=== PATIENT | male | born 1975 | race Hispanic/Latino ===

== ENCOUNTER 2017-04-30 10:26 | Emergency (ER) | payer OTHER ==
[2017-04-30 10:53] VITALS: BP 148/91; PULSE 85; RESP 18; TEMP 98; O2SAT 98
--- NOTE | 2017-04-30 11:03 | ED PDOC ---
Lower Extremity Pain/Injury Time Seen by Provider: 04/30/17 10:48 Chief Complaint (Nursing): Lower Extremity Problem/Injury Chief Complaint (Provider): knee pain History Per: Patient Additional Complaint(s): 41-year-old male presents with pain to left knee status post injury while playing soccer last night. Patient twisted his knee and felt a pop. He has been having pain with ambulation since then. No medication taken for pain relief. Patient rates current pain as 7 out of 10, better with rest, worse with movement. Past Medical History Reviewed: Historical Data, Nursing Documentation, Vital Signs Vital Signs: Last Vital Signs Temp 98.0 F 04/30/17 10:47 Pulse 85 04/30/17 10:47 Resp 18 04/30/17 10:47 BP 148/91 H 04/30/17 10:47 Pulse Ox 98 04/30/17 10:47 - Medical History PMH: No Chronic Diseases - Surgical History Other surgeries: cyst removal from upper back - Family History Family History: States: No Known Family Hx - Living Arrangements Living Arrangements: With Family - Social History Current smoker - smoking cessation education provided: No Alcohol: Social Drugs: Denies - Home Medications Home Medications: Ambulatory Orders Medication Instructions Recorded Ibuprofen [Motrin Tab] 800 mg PO Q8 PRN #20 tab 04/30/17 - Allergies Allergies/Adverse Reactions: Allergies Allergy/AdvReac Type Severity Reaction Status Date / Time No Known Allergies Allergy Verified 04/30/17 10:52 Wells Criteria for PE - Wells Criteria for Pulmonary Embolism Clinical Signs and Symptoms of DVT: No P.E is #1 Diagnosis, or Equally Likely: No Heart Rate >100: No Immobilization at least 3 days;Surgery previous 4 weeks: No Previous, objectively diagnosed PE or DVT: No Hemoptysis: No Malignancy w/treatment within 6 months, or palliative: No Total Score: 0 Review of Systems ROS Statement: Except As Marked, All Systems Reviewed And Found Negative Musculoskeletal: Positive for: Other (left knee injury) Physical Exam - Reviewed Nursing Documentation Reviewed: Yes Vital Signs Reviewed: Yes - Physical Exam Appears: Positive for: Well, Non-toxic, No Acute Distress Skin: Negative for: Rash Eye Exam: Positive for: Normal appearance Cardiovascular/Chest: Positive for: Regular Rate, Rhythm Respiratory: Positive for: Normal Breath Sounds Extremity: Positive for: Other (Mild diffuse tenderness to left knee with full range of motion, no calf swelling or tenderness, normal distal sensation) Neurologic/Psych: Positive for: Alert, Oriented - ECG O2 Sat by Pulse Oximetry: 98 Pulse Ox Interpretation: Normal - Other Rad Left knee x-ray X-Ray: Interpreted by Me, Viewed By Me X-Ray Interpretation: no fx, no dis Medical Decision Making Medical Decision Makin41 year old with left knee injury Plan: Motrin PO X-ray right knee Patient aware that x-rays are negative for fracture dislocation however x-ray does not exclude soft tissue injury. Knee immobilizer applied to left knee, crutches given, prescription given for Motrin. Patient was referred to orthopedist on-call for follow-up. Procedures - Splinting Location: left knee Pre-Made Type: knee immobilizer Pre-Proc Neuro Vasc Exam: normal Post-Proc Neuro Vasc Exam: normal Disposition - Clinical Impression Clinical Impression: Knee injury, Knee sprain - Patient ED Disposition Is Patient to be Admitted: No Counseled Patient/Family Regarding: Studies Performed, Diagnosis, Need For Followup, Rx Given - Disposition Referrals: Charley Pagan MD [Staff Provider] - Disposition: Routine/Home Disposition Time: 12:29 Condition: STABLE Additional Instructions: Ice, rest and elevate affected area. Take rx meds as directed as needed for pain. Follow up with orthopedist in 1-2 days. Prescriptions: Ibuprofen [Motrin Tab] 800 mg PO Q8 PRN #20 tab PRN Reason: Pain, Moderate (4-7) Instructions: Knee Sprain (ED), Knee Immobilizer (ED)
--- NOTE | 2017-04-30 14:18 | RAD ---
PROCEDURE: Left Knee Radiographs. HISTORY: Pain. COMPARISON: None. FINDINGS: BONES: Normal. No fracture. JOINTS: Normal. No osteoarthritis. JOINT EFFUSION: Small suprapatellar joint effusion is present. OTHER FINDINGS: None. IMPRESSION: No acute fractures. Small suprapatellar joint effusion.
== END 2017-04-30 13:36 | disposition home or self-care (01) ==
LOC: H.ER 10:26
DX: S83.92XA Sprain of unspecified site of left knee, initial encounter (principal); X50.9XXA Other and unspecified overexertion or strenuous movements or postures, initial encounter; Y92.322 Soccer field as the place of occurrence of the external cause